=== PATIENT | male | born 1945 | race Caucasian/White ===

== ENCOUNTER 2021-09-11 08:40 | Outpatient (CLI) | payer OTHER ==
[2021-09-11 18:25] LABS: SARS-CoV-2 PCR by NAA Not Detected (NotDetected)
== END 2021-09-11 08:41 | disposition home or self-care (01) ==
LOC: CSHLAB 08:40
PROVIDERS: ATTEND Internal Medicine Pulmonary Disease
DX: Z20.822 Contact with and (suspected) exposure to COVID-19 (principal)
CPT/HCPCS: U0003; U0005

== ENCOUNTER 2021-09-16 12:41 | Outpatient (CLI) | payer OTHER | END 2021-09-16 12:42 | disposition home or self-care (01) | LOC: CSHCP 12:41 | DX: I13.2 Hypertensive heart and chronic kidney disease with heart failure and with stage 5 chronic kidney disease, or end stage renal disease (principal); N18.5 Chronic kidney disease, stage 5; I50.9 Heart failure, unspecified | CPT/HCPCS: 94010; 94726; 94729; 94760 ==